=== PATIENT | female | born 1965 | race Caucasian/White ===

== ENCOUNTER 2016-08-22 12:40 | Emergency (ER) | payer BC, OTHER ==
[2016-08-22 12:51] VITALS: BP 111/78; PULSE 95; TEMP 99.8; BMI 33.0
--- NOTE | 2016-08-22 14:19 | PDOC ---
History of Present Illness - General Chief Complaint: Respiratory Stated Complaint: CHEST CONGESTION Time Seen by Provider: 08/22/16 13:55 - History of Present Illness Initial Comments: 08/22/16 14:20 Chief complaint: Fever History of present illness: Patient has had fever for several days up to 105, temporally subsides with ibuprofen, temperature was recorded as 103 today prior to admission, but she took ibuprofen in the interim and temperature is now down to 99.8. There is no clear source of infection. She denies cough or shortness of breath. She has chronic urinary retention, however, and this is somewhat worse recently. This is due to her MS. She had one episode of watery stool on, but no nausea vomiting or persistent diarrhea. She has no abdominal pain. She has no rash or skin infections/abscesses/enlarged lymph glands of which she is aware. She takes only Copaxone for her MS Review of systems: As above. In addition, no chest pain, shortness of breath, abdominal pain, nausea, vomiting, diarrhea, visual or focal neurologic symptoms , unsteadiness of gait, dysuria, vaginal bleeding or discharge. She is postmenopausal for more than 5 years. Does not take the flu shot Past medical history: Multiple sclerosis, severe for approximately 10 years, now in remission, minimal symptoms at present. No other medical or surgical illnesses and no other medications. Family/social history reviewed and noncontributory Physical exam: Alert and oriented 3, well-developed well-nourished, no acute distress, cheerful and cooperative Temperature 99.8, vital signs normal PERRLA, fundi benign, ENT clear Neck supple without bruit mass or nodes Lungs clear to P&A with full breath sounds throughout bilaterally, no wheezes rales or rhonchi CV S1 and S2 normal without murmur or gallop pulses full and symmetric no JVD or edema 70 and regular Abdomen nondistended. Normal bowel sounds. Soft without masses tenderness organomegaly. No CVAT Extremities no CCE. No rash. No posterior calf tenderness or cords Skin clear, no rash, adequate turgor and what mucous membranes Neurological C2 to 12 intact. Strength full and symmetric. No focal sensory or motor deficits. Gait stable and unimpaired. Impression: High fever and patient with MS, no specific symptoms, although her bladder dysfunction is slightly worse. Source of fever is most likely either an occult UTI, or nonspecific viral syndrome/flu. Consider also occult pneumonia Plan: UA/C&S. Further diagnostic studies depending on results. 08/22/16 14:39 Past History - Past Medical History Allergies/Adverse Reactions: Allergies Allergy/AdvReac Type Severity Reaction Status Date / Time cephalexin monohydrate Allergy Hives Verified 08/22/16 12:45 [From Keflex] gluten Allergy Verified 08/22/16 12:46 loratadine [From Claritin] Allergy Hives Verified 08/22/16 12:45 nut - unspecified Allergy Verified 08/22/16 12:46 Penicillins Allergy Hives Verified 08/22/16 12:45 Sulfa (Sulfonamide Allergy Hives Verified 08/22/16 12:45 Antibiotics) sulfite Allergy Verified 08/22/16 12:46 tomato Allergy Verified 08/22/16 12:46 DAIRY Allergy Uncoded 08/22/16 12:46 Home Medications: Ambulatory Orders Glatiramer Acetate [Copaxone] 20 mg SQ DAILY 08/19/12 Ibuprofen [Advil -] 400 mg PO ASDIR PRN 08/22/16 Other medical history: MS - Surgical History Appendectomy: Yes - Psycho/Social/Smoking Cessation Hx Anxiety: No Suicidal Ideation: No Smoking Status: Yes Smoking History: Former smoker Have you smoked in the past 12 months: No Number of Cigarettes Smoked Daily: 0 Information on smoking cessation initiated: No Hx Alcohol Use: Yes (social) *Physical Exam - Vital Signs Last Vital Signs Temp Pulse Resp BP Pulse Ox 99.8 F H 95 H 18 111/78 97 08/22/16 12:40 08/22/16 12:40 08/22/16 12:40 08/22/16 12:40 08/22/16 12:40 Medical Decision Making - Medical Decision Making 08/22/16 15:07 Analysis and chest x-ray are clear. Patient's temperature is controlled. She appears completely well, in no distress, and otherwise asymptomatic This is most likely a viral syndrome or flu. She is advised to stay home indoors , maintain adequate hydration, and return to the emergency room if any further specific symptoms develop or if she is unable to control her fever with Tylenol and ibuprofen. She is completely ambulatory and in no pain or other distress upon discharge with friend to follow-up as needed. *DC/Admit/Observation/Transfer Diagnosis at time of Disposition: Viral infection - Discharge Dispostion Disposition: HOME Condition at time of disposition: Stable Admit: No - Referrals Referrals: Catarina Moon [Primary Care Provider] - 2 Days - Patient Instructions Printed Discharge Instructions: DI for Fever (Symptom) -- Adult - Post Discharge Activity Work/School Note: Back to Work
[2016-08-22 14:30] LABS: PH,URINE 6.5 (4.5-8); URINE APPEARANCE Clear; URINE BILIRUBIN Negative (NEGATIVE); URINE GLUCOSE (UA) Negative (NEGATIVE); URINE KETONE Negative (NEGATIVE); URINE LEUK ESTERASE Negative (NEGATIVE); URINE NITRITE Negative (NEGATIVE); URINE PROTEIN Negative (NEGATIVE); URINE UROBILINOGEN 0.2 E.U/dl (0.2-1.0)
[2016-08-22 14:32] LABS: URINE COLOR YELLOW
[2016-08-22 15:30] LABS: URINE BLOOD Trace-lysed (NEGATIVE)
== END 2016-08-22 15:26 | disposition home or self-care (01) ==
LOC: FER 12:40
DX: B34.9 Viral infection, unspecified (principal); Z87.891 Personal history of nicotine dependence; G35 Multiple sclerosis
CPT/HCPCS: 71020-TC; 81003; 87086; 99284-25

== ENCOUNTER 2019-04-25 14:00 | Emergency (ER) | payer OTHER ==
[2019-04-25 14:08] VITALS: BMI 33.2
[2019-04-25 14:54] LABS: BASO % 0.5 % (0-2.0); EOS % 1.9 % (0-4.5); HEMATOCRIT 37.9 % (32.4-45.2); HEMOGLOBIN 12.7 GM/dl (10.7-15.3); LYMPH % 31.1 % (8-40); MCH 31.5 pg (25.7-33.7); MCHC 33.4 g/dl (32.0-36.0); MEAN CELL VOLUME 94.4 fl (80-96); MEAN PLT VOLUME 8.9 fl (7.5-11.1); MONO % 8.2 % (3.8-10.2); NEUT % 58.3 % (42.8-82.8); PLATELET COUNT 233 K/MM3 (134-434); RBC 4.02 M/mm3 (3.60-5.2); RDW 13.5 % (11.6-15.6); WHITE BLOOD COUNT 7.7 K/mm3 (4.0-10.8)
[2019-04-25 15:01] LABS: BILIRUBIN,TOTAL 0.8 mg/dl (0.2-1); CALCIUM 9.1 mg/dl (8.5-10); CREATININE 0.9 mg/dl (0.55-1.3); TOT PROT 6.6 g/dl (6.4-8.2)
--- NOTE | 2019-04-25 16:56 | PDOC ---
Documentation entered by Dalia Ferreira SCRIBE, acting as scribe for Abhay Kumar MD. Abhay Kumar MD: This documentation has been prepared by the Jhon noble Adrianna, SCRIBE, under my direction and personally reviewed by me in its entirety. I confirm that the documentation accurately reflects all work, treatment, procedures, and medical decision making performed by me. History of Present Illness - General Chief Complaint: Palpitations Stated Complaint: SOB, PALPITATIONS Time Seen by Provider: 04/25/19 14:04 History Source: Patient Exam Limitations: No Limitations - History of Present Illness Initial Comments: The patient is a 54 year old female, with a significant PMH of MS (on daily copaxone injections), who presents to the ED for evaluation of progressively worsening intermittent SOB and palpitations for 4 days. Patient complains of palpitations and SOB, which she describes as difficulty getting air out. she notes coughing will seem to stop the symtoms. These sx are intermittent, occur approximately x2 every hour, and resolve after a few minutes. She does report an increase in stress recently, noting her [id number] just passed. She denies any recent travel or illnesses, but endorses headache, lightheadedness, and tingling in the bilateral feet (different than her MS symptoms). Denies fever, chills, chest pain, nausea, vomit, diarrhea, constipation, dysuria , hematuria, bradley, melena, bpr, hemoptysis, leg pain, calf pain Allergies: black pepper, cephalexin monohydrate, corn, egg, gluten, loratadine, nut, penicillins, pineapple, soy, sulfa, sulfite, tomato, dairy Surgical History: Appendectomy Social History: Former smoker PCP: Dr. Luann Davenport Neurologist: Dr. Herlinda Dobson 04/25/19 16:40 Past History - Past Medical History Allergies/Adverse Reactions: Allergies Allergy/AdvReac Type Severity Reaction Status Date / Time black pepper Allergy Verified 04/25/19 14:02 cephalexin monohydrate Allergy Hives Verified 04/25/19 14:01 [From Keflex] corn Allergy Verified 04/25/19 14:02 egg Allergy Verified 04/25/19 14:02 gluten Allergy Verified 04/25/19 14:01 loratadine [From Claritin] Allergy Hives Verified 04/25/19 14:01 nut - unspecified Allergy Verified 04/25/19 14:01 Penicillins Allergy Hives Verified 04/25/19 14:01 pineapple Allergy Verified 04/25/19 14:02 soy Allergy Verified 04/25/19 14:02 Sulfa (Sulfonamide Allergy Hives Verified 04/25/19 14:01 Antibiotics) sulfite Allergy Verified 04/25/19 14:01 tomato Allergy Verified 04/25/19 14:01 DAIRY Allergy Uncoded 04/25/19 14:01 Home Medications: Ambulatory Orders Glatiramer Acetate [Copaxone] 20 mg SQ DAILY 08/19/12 Alprazolam [Xanax] 0.25 mg PO PRN PRN #4 tablet MDD 1 04/25/19 COPD: No Other medical history: MS - Surgical History Appendectomy: Yes - Psycho Social/Smoking Cessation Hx Smoking Status: Yes Smoking History: Never smoked Have you smoked in the past 12 months: No Number of Cigarettes Smoked Daily: 0 Information on smoking cessation initiated: No Hx Alcohol Use: (occasional) Cardiac Specific PMH - Complaint Specific PMHX Angina: No Cardiac Arrhythmia: No GERD: No Peripheral Vascular Disease: No Review of Systems - Review of Systems Comments:: Constitutional - Pt denies Fever, Chills, weakness, HEENT: denies vision changes, sore throat Respiratory: +cough. +SOB at rest and on exertion. Denies hemoptysis Cardiac: +Palpitations. denies chest pain, lightheadedness, leg swelling Abd/GI: denies abd pain, nausea, vomiting, blood per rectum, melena, diarrhea : denies dysuria, frequency, discharge Musculoskeletal - denies back pain, joint swelling skin - denies bruising, erythema, rash Neurological: +lightheadedness. denies numbness, focal weakness, ataxia, weakness hematologic: denies anemia, easy bruising, easy bleeding *Physical Exam - Vital Signs Last Vital Signs Temp Pulse Resp BP Pulse Ox 98.6 F 70 16 117/73 100 04/25/19 14:00 04/25/19 14:00 04/25/19 14:00 04/25/19 14:00 04/25/19 14:00 - Physical Exam Comments: GENERAL: The patient is awake, alert, and fully oriented, Nontoxic - in no acute distress. HEAD: Normocephalic, atraumatic. EYES: extraocular movements intact, sclera anicteric, conjunctiva clear. ENT: Normal voice, Moist mucous membranes. NECK: Normal range of motion, supple without lymphadenopathy, JVD, or masses. LUNGS: Breath sounds equal, clear to auscultation bilaterally. No wheezes, no crackles, no rales. HEART: Regular rate and rhythm, normal S1 and S2 without murmur, rub or gallop. ABDOMEN: Soft, nontender, normoactive bowel sounds. No guarding, no rebound. No masses. EXTREMITIES: Normal range of motion, no edema. No clubbing or cyanosis. No cords, erythema, or tenderness. NEUROLOGICAL: No facial asymmetry, Normal speech. PSYCH: Normal mood, normal affect. SKIN: Warm, Dry, normal turgor, no rashes or lesions noted. Heart Score/ECG Review - ECG Impressions Comment:: 04/25/19 15:30 Twelve-lead EKG was performed and reviewed by me. There is normal sinus rhythm with a normal rate. Rate of 68 The axis is normal. The intervals are normal. There is normal R wave progression There are no ST or T wave abnormalities. Impression: Normal twelve-lead EKG ED Treatment Course - LABORATORY CBC & Chemistry Diagram: 04/25/19 14:40 04/25/19 14:40 - ADDITIONAL ORDERS Additional order review: Laboratory Results 04/25/19 04/25/19 14:40 14:40 Sodium 140 Potassium 4.0 Chloride 105 Carbon Dioxide 27 Anion Gap 8 BUN 18.0 Creatinine 0.9 Est GFR (CKD-EPI)AfAm 84.01 Est GFR (CKD-EPI)NonAf 72.49 Random Glucose 91 Calcium 9.1 Total Bilirubin 0.8 AST 17 ALT 18 Alkaline Phosphatase 65 Creatine Kinase 67 Troponin I < 0.03 Total Protein 6.6 Albumin 4.0 04/25/19 14:40 RBC 4.02 MCV 94.4 MCHC 33.4 RDW 13.5 MPV 8.9 Neutrophils % 58.3 Lymphocytes % 31.1 Monocytes % 8.2 Eosinophils % 1.9 Basophils % 0.5 - RADIOLOGY Radiograph Interpretation: EXAM#: TYPE/EXAM: RESULT: [id number] RAD/CHEST PA LAT Chest: Shortness of breath Impression: No acute chest pathology. Reported By: Domingo Hernandez MD 04/25/19 16:00 Medical Decision Making - Medical Decision Making 04/25/19 14:56 54y F hx of ms presents with intermittent sob, palpitations taht occurs randomly lasting fo rminutes at a time and resolves with coughing. pt endorses some recent stressors such as losing her sister recently. pt dnies any recent illness/fever/chills/hemoptysios/bradley/cp/abdpain/back pain/leg swellnig. 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 pt feeling improved ambulating around the ER without any complaints Will discharge patient with primary care follow-up Return precautions discussed I discussed the physical exam findings, ancillary test results and final diagnoses with the patient. I answered all of the patient's questions. The patient was satisfied with the care received and felt comfortable with the discharge plan and treatment plan. The patient will call their primary care physician within 24 hours to arrange follow-up and will return to the Emergency Department with any new, persistent or worsening symptoms. 04/25/19 17:08 Discharge - Discharge Information Problems reviewed: Yes Clinical Impression/Diagnosis: Palpitations Condition: Improved Disposition: HOME - Admission No - Additional Discharge Information Prescriptions: Alprazolam [Xanax] 0.25 mg PO PRN PRN #4 tablet MDD 1 PRN Reason: Anxiety - Follow up/Referral Referrals: Eliecer Retana MD [Staff Physician] - ON STAFF,NOT [Primary Care Provider] - - Patient Discharge Instructions Patient Printed Discharge Instructions: DI for Palpitations Additional Instructions: Return to the emergency department immediately with ANY new, persistent or worsening symptoms. You MUST call and follow up with your Dr. Davenport for further evaluation of your symptoms. Results were discussed with you. Please make sure your doctor reviews the results of your emergency evaluation. Your Emergency Department visit is not complete without a follow up with your doctor. If you had any xrays during your visit, it was read preliminarily by myself, a Radiologist will review it and if there are any additional findings we will call you. Print Language: GREEK - Post Discharge Activity
[2019-04-25 17:28] VITALS: BP 124/86; PULSE 74; TEMP 97.8
--- NOTE | 2019-04-26 17:52 | EKG ---
Test Reason : Blood Pressure : / mmHG Vent. Rate : 068 BPM Atrial Rate : 068 BPM P-R Int : 192 ms QRS Dur : 078 ms QT Int : 404 ms P-R-T Axes : 055 036 048 degrees QTc Int : 429 ms NORMAL SINUS RHYTHM NORMAL ECG NO PREVIOUS ECGS AVAILABLE Confirmed by MD Tiffanie, Jens ([id number]) on 04/26/2019 5:51:55 PM Referred By: SHREYAS HILL Confirmed By:Jens Moreno MD
== END 2019-04-25 17:10 | disposition home or self-care (01) ==
LOC: FER 14:00 → SUPCPDRO 14:00 → FER 17:10
DX: R00.2 Palpitations (principal); G35 Multiple sclerosis; Z88.0 Allergy status to penicillin; Z88.1 Allergy status to other antibiotic agents; Z88.2 Allergy status to sulfonamides; Z91.011 Allergy to milk products; Z91.012 Allergy to eggs; Z91.018 Allergy to other foods
CPT/HCPCS: 36415; 71046-TC-FY; 80053; 82550; 84484; 85025; 93005; 99285-25